=== PATIENT | male | born 2005 | race Hispanic/Latino ===

== ENCOUNTER 2024-09-01 12:15 | Emergency (ER) | payer OTHER, SELFPAY ==
[2024-09-01 12:17] VITALS: BP 110/60
--- NOTE | 2024-09-01 14:35 | ED.GENMED ---
History of Present Illness
General
Chief Complaint: Musculo-Skeletal Complaint
Source: patient
Exam Limitations: none
Time Seen by Provider: 09/01/24 13:52
Nursing documentation reviewed up to this point in time: agreed with
History of Present Illness
History of Present Illness:
18-year-old male with no reported chronic medical issues presents to the emergency room for evaluation of left rib pain after a fall. Patient was working on a ladder a little over 1 week ago. He says he was roughly 6 to 10 feet high when he lost
his footing and fell. He says he landed on a wooden deck and struck the left chest wall on the ground. He says he did not hit his head and did not lose consciousness. He says he did not sustain any other injuries. He was able to get up on his
own and did not have any significant amount of pain immediately but over the next 24 to 48 hours he started to develop pain in his left chest wall particularly with movement and lifting. He says pain has been persistent since then and so he came to
the ER to be evaluated. Pain is worse with movement and lifting. He has not taken any medications to help relieve his symptoms. He denies any associated shortness of breath. He denies any other injuries or complaints.
Review of Systems
Review of Systems
All Other Systems: ROS reviewed and negative except as documented in HPI and ROS
Respiratory: Denies trouble breathing
Cardiac: Reports chest pain
ABD/GI: Denies abdominal pain, nausea or vomiting
: Denies flank pain
Musculoskeletal: Denies neck pain or back pain
Neurological: Denies headache
Phy Exam
Physical Exam
Physical Exam:
General: Awake, alert; no acute distress
Head: Normocephalic, atraumatic
Eyes: Conjunctiva normal
Throat: Airway intact, handling secretions
Neck: Trachea midline, no cervical spine tenderness, full range of motion without pain
Back: No signs of trauma to the back or flank and no thoracic or lumbar tenderness
Lungs: Clear to auscultation bilaterally, no wheezing, rales, rhonchi
Heart: Regular rate and rhythm, no murmurs, gallops, or rubs; on palpation of the left chest wall he has point tenderness over the ribs just inferior to the nipple on the left but no bruising or crepitus
Abd: Soft, non distended, nontender to deep palpation, no bruising
Neuro: No gross deficits, ambulatory
Extremities: Atraumatic, warm and well-perfused
Scores
Heart Failure Risk
Heart Failure Risk Score: Not Applicable
Heart Score for Chest Pain Patients
STEMI patient?: Not applicable
Withdrawal Assessment of Alcohol
Withdrawal Assessment Completed?: Not applicable
Course
Orders/Labs/Results
Orders:
Orders
09/01/24 12:21
CR Ribs-left 3 Vw W/pa Chest Urgent
Comment:
Reason For Exam: Trauma
09/01/24 14:32
Ketorolac [Toradol] 30 mg IM NOW STA
Lidocaine [Lidocaine 4% Patch] 1 patch TOPICAL ONCE ONE
Apply Lidocaine patch(s) to:: left chest wall
Vital Signs
Initial and Last Documented VS:
Initial Vital Signs
Temp Pulse Resp BP Pulse Ox
36.4 C 70 16 110/60 99
09/01/24 12:17 09/01/24 12:17 09/01/24 12:17 09/01/24 12:17 09/01/24 12:17
Last Documented Vital Signs
Temp Pulse Resp BP Pulse Ox
36.4 C 70 16 110/60 99
09/01/24 12:17 09/01/24 12:17 09/01/24 12:17 09/01/24 12:17 09/01/24 12:17
MDM/Problems Addressed
Differential Diagnosis Includes:
Rib fracture, bruised ribs/rib contusion, costochondritis
MDM/Problems Addressed:
18-year-old male presents for evaluation of left chest wall pain for the past 1 to 2 weeks after a fall onto his chest wall. Vitals and exam as above. He had x-ray of the chest and ribs which showed no acute fracture on my independent review. He
has no pneumothorax or hemothorax or other acute pathology noted. Suspect likely bruised ribs. Will plan to treat with NSAIDs. Advised him to take some time off from work�he says that he has been working through this injury including lifting
heavy bags of concrete. Stable for discharge. Spoke about return precautions all questions answered.
*Pulse Oximetry
SaO2: 99
Oxygen Mode of Delivery: Room air
Patient hypoxic: no (99%)
*Critical Care Note
Total Time (30-74mins, 75-104mins- exclusive of procedures): Not Applicable
Data Reviewed
Source: patient
ED Attending Note
-
Portions of this chart may have been created with voice recognition software.� Occasional wrong word or��sound alike� substitutions may have occurred due to the inherent limitations of voice recognition software.
Discharge Plan
Departure
Patient Disposition: Home (Routine Discharge)
Date of Disposition: 09/01/24
Time of Disposition: 14:34
Patient with high blood pressure during this ER visit?: No
Discharge Problem:
Bruised ribs
Instructions: Rib fracture or bruised rib - ED discharge instructions
Prescriptions:
New
ibuprofen 400 mg tablet
400 mg PO Q6H PRN (Reason: Pain) Qty: 30 0RF
Stand Alone Forms: Return to Work
Activity Restrictions/Additional Instructions:
Thank you for visiting the Emergency Department at [facility].
1. Please schedule a follow up appointment as directed. Call first thing tomorrow morning to make an appointment.
2. If indicated, please take your medications as instructed and indicated on discharge paperwork.
3. If any of your symptoms do not improve, or persist, or become more severe within 6-12 hours, please return to the emergency department for further care.
4. Please return to the emergency department if you develop a headache, neck pain/stiffness, fever greater than 100.4F, chest pain, shortness of breath, persistent nausea, vomiting, slurred speech, difficulty walking, numbness/tingling, weakness,
signs of infection or any other symptoms that are worrisome to you.
Please call [phone] if you have any questions.
Discharge Date and Time
Print Language: EMIRATI
[2024-09-01] MEDS: TORADOL 30 MG IM (14:46)
[2024-09-01] MEDS: LIDOCAINE 4% PATCH 1 PATCH TOPICAL (14:49)
== END 2024-09-01 14:56 | disposition home or self-care (01) ==
LOC: EMR 12:15
PROVIDERS: EMERGENCY PHYSICIAN Emergency Medicine
DX: S20.212A Contusion of left front wall of thorax, initial encounter (principal); W11.XXXA Fall on and from ladder, initial encounter
CPT/HCPCS: 96372; 99284; 71101

== ENCOUNTER 2024-11-18 13:37 | Emergency (ER) | payer OTHER, SELFPAY ==
[2024-11-18 13:41] VITALS: BP 124/74
--- NOTE | 2024-11-18 14:22 | ED.SKININJ ---
HPI-Injury
General
Chief Complaint: BURN-MAJOR
Source: patient and family
Exam Limitations: none
Time Seen by Provider: 11/18/24 14:06
Nursing documentation reviewed up to this point in time: agreed with
History of Present Illness-Injury
Is this injury a work related problem?: No
Is pt an associate of [facility]/[place]?: No
Initial Injury comments:
19-year-old male left wrist burn on cooking oil just prior to arrival
Past History
Past History
ED Past Medical History: None
ED Past Surgical History: None
Social History
Tobacco: Non-smoker
Alcohol: None
Drug: None
Personal: Single
Living: with family
Employment: Employed (Works in concrete)
Review of Systems
Review of Systems
All Other Systems: Not applicable
Musculoskeletal: Reports joint pain and edema
Phy Exam
Physical Exam
Physical Exam:
Physical Exam
General: no apparent distress, not acutely ill
Neck: No signs of head or neck trauma
Heart: s1/s2 regular rate and rhythm, no murmur. equal radial pulses.
Lungs: no acute respiratory distress. clear bilaterally
Neuro: alert and oriented. no focal neurological deficits
Skin: no rash
Psychiatric: well kept. interactive and cooperative
Extremities: Not circumferential second-degree burn on the left wrist on the dorsum about a third of the way around the volar surface normal cap refill
Course
Orders/Labs/Results
Orders:
Orders
11/18/24 14:11
Ibuprofen [Motrin] 600 mg PO NOW STA
Oxycodone/Acetaminophen [Percocet 5/325] 1 tablet PO NOW STA
11/18/24 14:12
Wound Dressing- Treatment ONCE
Location of Wound: wrist
Treatment of Wound: neosporin, then dry dressing
Vital Signs
Initial and Last Documented VS:
Initial Vital Signs
Temp Pulse Resp BP Pulse Ox
98.5 F 77 16 124/74 98
11/18/24 13:41 11/18/24 13:41 11/18/24 13:41 11/18/24 13:41 11/18/24 13:41
Last Documented Vital Signs
Temp Pulse Resp BP Pulse Ox
98.5 F 77 16 124/74 98
11/18/24 13:41 11/18/24 13:41 11/18/24 13:41 11/18/24 13:41 11/18/24 14:22
MDM/Problems Addressed
Differential Diagnosis Includes:
Second-degree burn
MDM/Problems Addressed:
Second-degree burn not circumferential
*Pulse Oximetry
SaO2: 98
Oxygen Mode of Delivery: Room air
Patient hypoxic: no
*Critical Care Note
Total Time (30-74mins, 75-104mins- exclusive of procedures): Not Applicable
Update Note
Update Note:
Update second-degree burn not circumferential reviewed with patient signs and symptoms of worsening infection or any signs of circumferential progression
ED Attending Note
-
Portions of this chart may have been created with voice recognition software.� Occasional wrong word or��sound alike� substitutions may have occurred due to the inherent limitations of voice recognition software.
Discharge Plan
Departure
Patient Disposition: Home (Routine Discharge)
Date of Disposition: 11/18/24
Time of Disposition: 14:19
Patient with high blood pressure during this ER visit?: No
Condition: Good
Discharge Problem:
Burn
Instructions: Skin (DC)
Prescriptions:
New
ibuprofen 600 mg tablet
600 mg PO Q6H PRN (Reason: Pain) Qty: 20 0RF
Triple Antibiotic 3.5mg-400 unit- 5,000 unit/gram ointment
1 applic topical BID PRN (Reason: burn) Qty: 9.35 0RF
oxycodone-acetaminophen [Percocet] 5-325 mg tablet
1 tab PO Q6HPRN PRN (Reason: pain) Qty: 10 0RF
No Action
ibuprofen 400 mg tablet
400 mg PO Q6H PRN (Reason: Pain) Qty: 30 0RF
lidocaine [Lidoderm] 5 % adhesive patch,medicated
1 patch topical DAILY Qty: 15 0RF
Referrals:
Latisha Kerr MD [Family Provider, Family Practice] - Follow up in 1 week
Interventions
Interventions:
*Risk Screen - Suicide Last Done: 11/18/24 13:41
*Neglect/Abuse Screening Last Done: 11/18/24 13:41
Discharge Date and Time
Print Language: BRITISH
[2024-11-18] MEDS: MOTRIN 600 MG PO (14:35)
[2024-11-18] MEDS: PERCOCET 5/325 1 TABLET PO (14:35)
== END 2024-11-18 15:03 | disposition home or self-care (01) ==
LOC: EMR 13:37
PROVIDERS: EMERGENCY PHYSICIAN Emergency Medicine; FAMILY PHYSICIAN Family Medicine
DX: T23.272A Burn of second degree of left wrist, initial encounter (principal); X10.2XXA Contact with fats and cooking oils, initial encounter
CPT/HCPCS: 99283

== ENCOUNTER 2024-12-01 13:31 | Emergency (ER) | payer OTHER, SELFPAY ==
[2024-12-01 13:34] VITALS: BP 123/71
[2024-12-01 13:47] LABS: Hematocrit 42.8 % (39.0-52.0); Hemoglobin 15.6 g/dL (13.0-18.0); Mean Corp Hgb Conc. 36.4 g/dL (33.0-37.0); Mean Corpuscular Volume 86.3 fL (80.0-94.0); Nucleated Red Blood Cells % 0 % (-); Platelet Count 256 10^3/uL (130-400); Red Cell Dist. Width 11.9 % (11.5-14.5)
[2024-12-01 14:12] LABS: ALT (SGPT) 18 U/L (0-50); AST (SGOT) 21 U/L (17-59); Albumin 4.6 g/dl (3.5-5.0); Alkaline Phosphatase 86 U/L (38-126); Blood Urea Nitrogen 10 mg/dl (9-20); Calcium 9.3 mg/dl (8.4-10.2); Carbon Dioxide 23 mmol/L (22-30); Chloride 108 mmol/L (98-107); Glucose 89 mg/dl (70-99); Potassium 4.0 mmol/L (3.5-5.1); Sodium 139 mmol/L (135-145); Total Protein 7.5 g/dl (6.3-8.2); eGFR > 60.00
--- NOTE | 2024-12-01 14:27 | ED.GENMED ---
History of Present Illness
General
Chief Complaint: Skin Problem
Source: patient
Exam Limitations: none
Time Seen by Provider: 12/01/24 13:58
Nursing documentation reviewed up to this point in time: agreed with
History of Present Illness
History of Present Illness:
The patient is a pleasant 19-year-old man who suffered a second-degree burn to his left wrist 13 days ago from burning hot oil while cooking. Patient was evaluated in the emergency department at the time of the injury and given triple antibiotic
ointment and the wound was dressed. Patient reports that it has been healing well until yesterday when he noticed sudden onset of a burning pain sensation in the center of the burn, along his anterior his left wrist. Patient denies numbness and
weakness of the left hand. He reports a few days ago he noticed streaking skin redness extending up his left forearm, however, the streaking redness has gone away. He denies fever. He denies drainage from the burn wound. Patient denies any pain
in his left hand.
Past History
Past History
ED Past Medical History: None
ED Past Surgical History: None
Social History
Tobacco: Non-smoker
Alcohol: None
Drug: None
Personal: Single
Living: with family
Employment: Employed (Works in concrete)
Family History
Family History: Other
Review of Systems
Review of Systems
Allergies reviewed?: Yes
All Other Systems: ROS reviewed and negative except as documented in HPI and ROS
Constitutional: Reports no symptoms
EENT: Reports no symptoms
Respiratory: Reports no symptoms
Cardiac: Reports no symptoms
ABD/GI: Reports no symptoms
: Reports no symptoms
Skin: Reports other (Burning sensation of skin along anterior left wrist where burn wound is located)
Neurological: Reports no symptoms
Endocrine: Reports no symptoms
Hematologic/Lymphatic: Reports no symptoms
Psychiatric: Reports no symptoms
Phy Exam
Physical Exam
Physical Exam:
Physical Exam
General: no apparent distress, not acutely ill
Neck: supple.
Heart: s1/s2 regular rate and rhythm, strong pulses in left radial artery
Lungs: no acute respiratory distress. clear bilaterally
Abdomen: Soft
Neuro: alert and oriented. no focal neurological deficits. Excellent handgrip strength of hands bilaterally. Equal sensation of hands bilaterally
Skin: Circumferential skin scarring of left wrist. Wound appears closed without any purulent drainage. Mild skin erythema of anterior left wrist. Compartments of left hand and forearm are soft
Psychiatric: well kept. interactive and cooperative
Extremities: no edema.
Course
Orders/Labs/Results
Orders:
Orders
12/01/24 13:40
CMP [Comprehensive Metabolic Panel] Urgent
Complete Blood Count/With Diff Urgent
12/01/24 14:31
Cephalexin Monohydrate [Keflex] 500 mg PO NOW STA
Abnormal Lab Results
12/01/24
13:40
MCH 31.5 H pg
(27.0-31.0)
MPV 10.5 H fL
(7.4-10.4)
Chloride 108 H mmol/L
(98-107)
Total Bilirubin 1.5 H mg/dl
(0.2-1.3)
12/01/24 13:40
12/01/24 13:40
Vital Signs
Initial and Last Documented VS:
Initial Vital Signs
Temp Pulse Resp BP Pulse Ox
98.0 F 84 18 123/71 99
12/01/24 13:34 12/01/24 13:34 12/01/24 13:34 12/01/24 13:34 12/01/24 13:34
Last Documented Vital Signs
Temp Pulse Resp BP Pulse Ox
98.0 F 84 18 123/71 99
12/01/24 13:34 12/01/24 13:34 12/01/24 13:34 12/01/24 13:34 12/01/24 14:31
MDM/Problems Addressed
Differential Diagnosis Includes:
Skin wound infection of left wrist, neuropathic pain of left wrist from nerves healing from skin burn
MDM/Problems Addressed:
Patient presents with acute pain along skin burn wound of left wrist
*Pulse Oximetry
SaO2: 99
Oxygen Mode of Delivery: Room air
Patient hypoxic: no
*EKG
Interpreted by ED Provider?: NA
*Data Steward Interpretation
Rate: Data Steward- N/A
*Critical Care Note
Total Time (30-74mins, 75-104mins- exclusive of procedures): Not Applicable
Data Reviewed
Source: patient
Patient Management
Social determinants of health affecting care: Living situation and Strong social support
Discussion with other providers: Other (Sent pictures of skin wound and presented case to Dr. Errol Ford via [place] text. He agreed to follow the patient closely as an outpatient. Patient instructed to call his office today for an appointment.)
Escalation/DeEscalation of care consider admission/obs:
There is no sign of significant cellulitis, lymphangitis, compartment syndrome or any neurovascular compromise of left upper extremity. Patient appears nontoxic and well. There perhaps could be a small skin infection or perhaps pain could be
neuropathic in nature
ED Attending Note
-
Portions of this chart may have been created with voice recognition software.� Occasional wrong word or��sound alike� substitutions may have occurred due to the inherent limitations of voice recognition software.
Discharge Plan
Departure
Patient Disposition: Home (Routine Discharge)
Date of Disposition: 12/01/24
Time of Disposition: 14:36
Patient with high blood pressure during this ER visit?: Yes
Condition: Good
Discharge Problem:
Burn of skin, Infected wound
Instructions: Skin steward, BLOOD PRESSURE
Prescriptions:
New
cephalexin 500 mg capsule
500 mg PO BID Qty: 10 0RF
mupirocin [Centany] 2 % ointment
1 applic topical BID Qty: 15 0RF
Rx Instructions:
Apply to left wrist wound twice a day
No Action
ibuprofen 400 mg tablet
400 mg PO Q6H PRN (Reason: Pain) Qty: 30 0RF
lidocaine [Lidoderm] 5 % adhesive patch,medicated
1 patch topical DAILY Qty: 15 0RF
ibuprofen 600 mg tablet
600 mg PO Q6H PRN (Reason: Pain) Qty: 20 0RF
Triple Antibiotic 3.5mg-400 unit- 5,000 unit/gram ointment
1 applic topical BID PRN (Reason: burn) Qty: 9.35 0RF
oxycodone-acetaminophen [Percocet] 5-325 mg tablet
1 tab PO Q6HPRN PRN (Reason: pain) Qty: 10 0RF
oxycodone-acetaminophen [Percocet] 5-325 mg tablet
1 tab PO Q6HPRN PRN (Reason: pain) Qty: 10 0RF
Referrals:
Clyde Ford MD [Active, Orthopedics]
Referral Note: Call today to make an appointment to see as soon as possible
UNKNOWN - PT NOT,INTERVIEWE [Unknown Provider]
Activity Restrictions/Additional Instructions:
Apply the mupirocin ointment generously on the wound of your left wrist 2 times a day for 1 week. Try to keep the wound covered when you are working to keep it clean.
It is also important that you taking the cephalexin as prescribed.
Please call Dr. Clyde Ford's office today to schedule an appointment with him for a soon as possible, early next week. Please let the office know that you were seen in the emergency department and that Dr. Ford is aware that you need to be seen.
Return for any numbness or weakness of the left hand. Return for fever. Return if there is pus draining from the left wrist wound
Interventions
Interventions:
*General Assessment Last Done: 12/01/24 13:34
*Nursing Disposition Last Done: 12/01/24 15:08
ED-Skin Assessment Last Done: 12/01/24 13:56
Discharge Date and Time
Print Language: MALAGASY
[2024-12-01] MEDS: KEFLEX 500 MG PO (14:47)
== END 2024-12-01 15:08 | disposition home or self-care (01) ==
LOC: EMR 13:31
PROVIDERS: Emergency Medicine; EMERGENCY PHYSICIAN Emergency Medicine; FAMILY PHYSICIAN Family Medicine
DX: L08.9 Local infection of the skin and subcutaneous tissue, unspecified (principal); T23.272A Burn of second degree of left wrist, initial encounter; X10.2XXA Contact with fats and cooking oils, initial encounter
CPT/HCPCS: 99283; 80053; 85025